=== PATIENT | female | born 1990 ===

== ENCOUNTER 2022-09-19 19:30 | Emergency (ER) | payer OTHER ==
[~2022-09-19] VITALS: Ht 157.5 cm; Wt 67.0 kg
[2022-09-19 19:32] VITALS: BP 123/68; PULSE 90; RESP 15; TEMP 98.4
[2022-09-19] MEDS ORDERED: KETOROLAC TROMETHAMINE 30 MG/ML VIAL IM ONE (22:30)
== END 2022-09-19 23:16 | disposition home or self-care (01) ==
LOC: EMS 19:32
DX: M75.31 Calcific tendinitis of right shoulder (principal)
CPT/HCPCS: 99284; 84703; 73030; 81025; 96372; J1885; 99285